=== PATIENT | female | born 1995 | race Two or more races ===

== ENCOUNTER 2017-08-03 03:37 | Observation (INO) | payer MEDICAID, OTHER ==
[2017-08-03] MEDS ORDERED: NS 1,000 ML IV ONE (04:15)
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
[2017-08-03] MEDS ORDERED: GADOBUTROL 10 ML VIAL IVP ONE (06:05)
[2017-08-03 07:14] LABS: PLATELET COUNT 209 10^3/uL (150-400)
[2017-08-03] MEDS ORDERED: ONDANSETRON DISINTEGRATING 4 MG TAB PO PRN (09:13)
[2017-08-03] MEDS ORDERED: LR 1,000 ML IV SCH (09:30)
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
[2017-08-03] MEDS: ACETAMINOPHEN 325 MG TAB PO PRN ×2 (11:27→23:33)
[2017-08-03] MEDS ORDERED: LORazepam 2 MG/ML INJ IV PRN (15:15)
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
[2017-08-04] MEDS ORDERED: ALBUTEROL 60 PUFFS/8 GM MDI IH PRN (09:40)
[2017-08-04] MEDS ORDERED: IOPAMIDOL (ISOVUE-300) 100 ML BTL ONE (09:53)
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
[2017-08-04] MEDS ORDERED: levETIRAcetam 500 MG TAB PO SCH (10:30)
[2017-08-04] MEDS: ACETAMINOPHEN 325 MG TAB PO PRN (12:09)
[2017-08-04 12:11] VITALS: BP 135/85
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
== END 2017-08-04 12:40 | disposition home or self-care (01) ==
LOC: F2N 10:18
PROVIDERS: ADMIT Surgery; ATTEND Surgery
DX: S06.6X0A Traumatic subarachnoid hemorrhage without loss of consciousness, initial encounter (principal); S00.81XA Abrasion of other part of head, initial encounter; S80.02XA Contusion of left knee, initial encounter; S50.11XA Contusion of right forearm, initial encounter; S30.1XXA Contusion of abdominal wall, initial encounter; F10.929 Alcohol use, unspecified with intoxication, unspecified; V49.88XA Car occupant (driver) (passenger) injured in other specified transport accidents, initial encounter; Y93.89 Activity, other specified; Y92.488 Other paved roadways as the place of occurrence of the external cause; J45.909 Unspecified asthma, uncomplicated; Y90.9 Presence of alcohol in blood, level not specified
CPT/HCPCS: 70450; 70553; 73080; 73560; 74177; 92523; 97161; 97165; 99285; G0378; A9585; G0480; J2060; Q9967